=== PATIENT | female | born 1980 | race Caucasian/White ===

== ENCOUNTER 2017-03-08 15:26 | Emergency (ER) | payer OTHER ==
[~2017-03-08] VITALS: Ht 157.5 cm; Wt 76.2 kg
[2017-03-08 17:33] LABS: BASOPHIL % 1.2 % (0-2); PLATELET COUNT 369 x10^3mcL (130-400)
[2017-03-08 19:00] VITALS: BP 133/76
== END 2017-03-08 19:00 | disposition home or self-care (01) ==
LOC: ED 15:26
PROVIDERS: Emergency Medicine
DX: O03.9 Complete or unspecified spontaneous abortion without complication (principal); Z79.899 Other long term (current) drug therapy; Z3A.01 Less than 8 weeks gestation of pregnancy
CPT/HCPCS: J0696

== ENCOUNTER 2017-08-21 10:47 | Emergency (ER) | payer OTHER ==
[~2017-08-21] VITALS: Ht 154.9 cm; Wt 73.5 kg
[2017-08-21 11:34] VITALS: BP 146/108
== END 2017-08-21 13:20 | disposition home or self-care (01) ==
LOC: ED 10:47
DX: S86.912A Strain of unspecified muscle(s) and tendon(s) at lower leg level, left leg, initial encounter (principal); X58.XXXA Exposure to other specified factors, initial encounter; Y93.89 Activity, other specified; Y99.8 Other external cause status; Y92.89 Other specified places as the place of occurrence of the external cause